=== PATIENT | male | born 1935 | race African-American/Black ===

== ENCOUNTER 2018-09-12 12:51 | Observation (INO) ==
[2018-09-12] MEDS ORDERED: ASPIRIN PR ONE (13:08)
[2018-09-12] MEDS ORDERED: ASPIRIN PO ONE (13:08)
--- NOTE | 2018-09-12 13:32 | Diag Imaging Result Doc PS360 ---
EXAM: CHEST-2 VIEWS HISTORY: CP/SOB TECHNIQUE: Chest two views COMPARISON: 05/26/2017 FINDINGS: The lungs are well expanded. The left hemidiaphragm is elevated similar to the prior study. The heart is not enlarged. The vessels are not distended. There are no infiltrates. No pleural effusions. IMPRESSION: No acute abnormality. Electronically signed by Bebo Jefferson 09/12/2018 1:30 PM
[2018-09-12 13:35] LABS: BASO# 0.02 X1000 (0.0-0.2); BASO% 0.3 % (0.0-0.8); EOS# 0.07 X1000 (0.0-0.7); EOS% 1.1 % (0.0-10.0); HEMATOCRIT 40.1 % (42.0-52.0); HEMOGLOBIN 12.7 g/dL (14.0-18.0); LYMPH# 1.74 X1000 (1.2-3.4); LYMPH% 28.2 % (20.5-51.1); MCH 29.5 PG (27-31); MCHC 31.7 g/dL (33-37); MCV 93.3 FL (81-99); MONO# 0.51 X1000 (0.11-0.59); MONO% 8.3 % (1.7-9.3); MPV 10.4 FL (7.4-10.4); NEUT# 3.83 X1000 (1.4-6.5); NEUT% 62.1 % (42.2-75.2); PLT 182 X1000 (130-400); RDW 12.2 % (11.5-14.5); WBC 6.17 X1000 (4.8-10.8)
[2018-09-12 13:38] LABS: INR 0.93; PROTIME 13.2 Seconds (11.0-16.0)
[2018-09-12 13:39] LABS: PTT 28.3 Seconds (22.3-41.8)
--- NOTE | 2018-09-12 13:48 | EKG Report ---
Test Performed on : 09/12/2018 1:10:58 PM Test Reason : CP/SOB Blood Pressure : / mmHG Vent. Rate : 084 BPM Atrial Rate : 084 BPM P-R Int : 206 ms QRS Dur : 088 ms QT Int : 378 ms P-R-T Axes : 050 051 -09 degrees QTc Int : 446 ms Sinus rhythm. with occasional premature ventricular complexes. Minimal voltage criteria for LVH, may be normal variant Nonspecific T wave abnormality Abnormal ECG When compared with ECG of 11-FEB-2010 11:32, premature ventricular complexes. are now present T wave inversion now evident in Inferior leads Nonspecific T wave abnormality now evident in Lateral leads Unconfirmed Result
[2018-09-12 13:52] LABS: AGAP 13; ALB/GLOB RATIO 1.4; ALBUMIN 4.2 g/dL (3.5-5.0); ALKALINE PHOSPHATASE 58 U/L (32-122); BUN 17 mg/dL (8-22); CALCIUM 9.4 mg/dL (8.8-10.2); CHLORIDE 103 mmol/L (98-107); CK PROFILE 187 U/L (24-204); COSMO 285; CREATININE 1.1 mg/dL (0.7-1.2); ESTIMATED GFR > 60; GLUCOSE 146 mg/dL (70-104); GOT 15 U/L (10-34); GPT 8 U/L (10-44); POTASSIUM 4.2 mmol/L (3.5-5.1); SODIUM 141 mmol/L (136-145); TCO2 25 mmol/L (25-35); TOTAL BILIRUBIN 0.58 mg/dL (0.20-1.00); TOTAL PROTEIN 7.3 g/dL (6.3-8.3)
--- NOTE | 2018-09-12 14:41 | ED EKG INTERP ---
This chart was entered by Peggy Garsia Scribe, acting as scribe for Brianda Alston MD. EKG Interpretation - EKG Time of EKG reading by physician:: 13:10 EKG Read and Signed by:: Brianda Alston EKG Interpretation (*Must complete 3 of following elements*): Abnormal ( nonspecific T wave abnormality.) Rate: 84 Rhythm: sinus rhythm with occasional premature ventricular complexes Comments: minimal voltage criteria for LVH, may be normal variant Attestation - Physician/ IVAN Attestation The physician spent face to face time with patient:: No Advanced Practice Provider documentation review:: Supervising physician onsite and consulted in the evaluation and care of this patient. The physician did not have a face to face encounter with the patient. This chart was documented by the indicated scribe, (Peggy Garsia Scribe) and accurately reflects the services I performed and decisions made by me, Brianda Alston MD, as attested by the provider's signature.
--- NOTE | 2018-09-12 16:10 | PROVIDER DOCUMENTATION ---
This chart was entered by Peggy Garsia Scribe, acting as scribe for Brianda Alston MD. HPI-Respiratory General - General Chief Complaint: Epigastric Pain Stated Complaint: CHEST PAIN / SOB Time Seen by Provider: 09/12/18 15:03 Source: patient Allergies/Adverse Reactions: Patient Allergies Allergy/AdvReac Type Severity Reaction Status Date / Time No Known Allergies Allergy Verified 09/12/18 15:59 - History of Present Illness-Resp Nature of Presenting Problem: Patient is a 82 year old male who presents to the ED with shortness of breath. Patient states shortness of breath started this morning. Patient states having a cardiac workup Wednesday by Dr. Jordan due to have chest pain prior. Patient denies having chest pain currently. Quality of Pain: reports: tightness Severity in ED: reports: mild Onset/Duration: reports: this morning Timing: reports: still present Cough Quality/Degree: reports: no cough Current Respiratory Medication Therapy: Initiated see nurses note Modifying Factors: improves with: nothing Associated Symptoms: reports: shortness of breath Similar Symptoms Previously?: No Recently seen or treated by another doctor?: Yes Review of Systems - Adult - REVIEW OF SYSTEMS - ADULT Constitutional: reports: no symptoms reported Eyes: reports: no symptoms reported Ears, Nose, Mouth & Throat: reports: no symptoms reported Cardiovascular: reports: no symptoms reported Respiratory: reports: shortness of breath. denies: cough, wheezing Gastrointestinal: reports: no symptoms reported Genitourinary: reports: no symptoms reported Musculoskeletal: reports: no symptoms reported Integumentary: reports: no symptoms reported Neurological: reports: no symptoms reported Psychiatric: reports: no symptoms reported Endocrine: reports: no symptoms reported Hematologic/Lymphatic: reports: no symptoms reported Allergic/Immunologic: reports: no symptoms reported All Other Systems: Reviewed and Negative Past History - Adult - PAST MEDICAL HISTORY-ADULT Review of Records: reports: Nursing Assessment Review, Medications Reviewed, Social history reviewed & non-contributory. Major Childhood Illnesses: reports: denies history Cardiovascular: reports: denies history Respiratory: reports: denies history Gastrointestinal: reports: denies history Obstetrical/Gynecological: reports: denies history Genitourinary: reports: denies history Musculoskeletal: reports: denies history Neurological: reports: denies history Endocrine/Immune: reports: denies history Other Conditions: reports: denies history - PRIOR SURGERIES/PROCEDURES Surgical/Procedure History: reports: reviewed, not pertinent - IMMUNIZATION STATUS Childhood Immunizations: See Nurse Assessment Flu Vaccine: See Nurse Assessment - FAMILY HISTORY Family History: reviewed, not pertinent - SOCIAL HISTORY Smoking: denies Substance Use: denies Physical Exam-General - PHYSICAL EXAM-ADULT Initial Vital Signs Reviewed: Yes - CONSTITUTIONAL General Appearance: alert, no apparent distress - HEAD, EARS, NOSE, MOUTH & THROAT HENMT: normal ENT inspection - NECK Neck: normal inspection - RESPIRATORY Respiratory: chest non-tender, lungs clear, normal breath sounds - CARDIOVASCULAR Cardiovascular: normal peripheral pulses, regular rate, rhythm - GASTROINTESTINAL (ABDOMEN) Abdominal Exam: normal bowel sounds, non tender, soft - MUSCULOSKELETAL Back Exam: normal inspection Extremity: non-tender, normal inspection - SKIN Integumentary: normal color, normal turgor, warm/dry - NEUROLOGIC Neurologic: grossly normal - PSYCHIATRIC Psych/Mental Status: normal mood/affect, oriented x 3 Progress - PLAN OF CARE/RESULTS Progress/Plan/Lab Results: Vital Signs - 8 hr 09/12/18 13:06 Temperature 98.3 F Pulse Rate 70 Respiratory Rate 18 Blood Pressure 151/66 O2 Sat by Pulse Oximetry 96 Laboratory Results - last 24 hr 09/12/18 09/12/18 09/12/18 13:12 13:12 13:12 WBC 6.17 RBC 4.30 L Hgb 12.7 L Hct 40.1 L MCV 93.3 MCH 29.5 MCHC 31.7 L RDW Std Deviation 12.2 Plt Count 182 MPV 10.4 Neut % (Auto) 62.1 Lymph % (Auto) 28.2 Eddy % (Auto) 8.3 Eos % (Auto) 1.1 Baso % (Auto) 0.3 Neut # (Auto) 3.83 Lymph # (Auto) 1.74 Eddy # (Auto) 0.51 Eos # (Auto) 0.07 Baso # (Auto) 0.02 PT INR PTT (Actin FS) Sodium 141 Potassium 4.2 Chloride 103 Carbon Dioxide 25 Anion Gap 13 BUN 17 Creatinine 1.1 Estimated GFR/1.73 m2 > 60 BUN/Creatinine Ratio 15 Glucose 146 H Calculated Osmolality 285 Calcium 9.4 Total Bilirubin 0.58 AST 15 ALT 8 L Alkaline Phosphatase 58 Creatine Kinase 187 Troponin T Nxc-V-Wrtchawfafw Pept 1287 H Total Protein 7.3 Albumin 4.2 Globulin 3.1 Albumin/Globulin Ratio 1.4 09/12/18 09/12/18 13:12 13:12 WBC RBC Hgb Hct MCV MCH MCHC RDW Std Deviation Plt Count MPV Neut % (Auto) Lymph % (Auto) Eddy % (Auto) Eos % (Auto) Baso % (Auto) Neut # (Auto) Lymph # (Auto) Eddy # (Auto) Eos # (Auto) Baso # (Auto) PT 13.2 INR 0.93 PTT (Actin FS) 28.3 Sodium Potassium Chloride Carbon Dioxide Anion Gap BUN Creatinine Estimated GFR/1.73 m2 BUN/Creatinine Ratio Glucose Calculated Osmolality Calcium Total Bilirubin AST ALT Alkaline Phosphatase Creatine Kinase Troponin T 0.110 H Igf-I-Ejfkikjodhy Pept Total Protein Albumin Globulin Albumin/Globulin Ratio Orders Category Date Time Status Cardiac Monitoring DIRECTED Care 09/12/18 13:08 Active Oxygen Therapy- ED Nursing DIRECTED Care 09/12/18 13:08 Active Saline Loc NOW Care 09/12/18 13:08 Active CHEST-2 VIEWS [RAD] Stat Exams 09/12/18 13:08 Completed CBC WITH ELECTRONIC DIFF [HEME] Stat Lab 09/12/18 13:12 Completed CK PROFILE [SP CHEM] Stat Lab 09/12/18 13:12 Completed COMPREHENSIVE METABOLIC PANEL [CHEM] Stat Lab 09/12/18 13:12 Completed PRO B-NATRIURETIC PEPTIDE Stat Lab 09/12/18 13:12 Completed PROTIME WITH INR [COAG] Stat Lab 09/12/18 13:12 Completed PTT [COAG] Stat Lab 09/12/18 13:12 Completed TROPONIN T Stat Lab 09/12/18 13:12 Completed Aspirin Med 09/12/18 13:08 Discontinued 325 mg PO NOW ONE CP/SOB/Palp >45 yrs of Age Stat Oth 09/12/18 13:08 Ordered EKG [EKG] Stat Ther 09/12/18 13:08 Draft Result Diagrams: 09/12/18 13:12 09/12/18 13:12 - XRAY 1 XRAY Study: Chest Impression: See EMR Report (EXAM: CHEST-2 VIEWS HISTORY: CP/SOB TECHNIQUE: Chest two views COMPARISON: 05/26/2017 FINDINGS: The lungs are well expanded. The left hemidiaphragm is elevated similar to the prior study. The heart is not enlarged. The vessels are not distended. There are no infiltrates. No pleural effusions. IMPRESSION: No acute abnormality. Electronically signed by Bebo Jefferson 09/12/2018 1:30 PM 09/12/18 1330 Interpreting Physician: Bebo Jefferson MD Dictated Date/Time: 09/12/18 1329 cc: Brianda Alston MD; Abhishek Jordan MD) - CONSULTS/PCP/HOSPITALIST Notification #1 *Consult/PCP/Hospitalist*: Dr. Jordan Time Discussed: 15:44 Reason/Comments: Dr. Alston consulted with Dr. Jordan about patient. #2 Consult: GOLDY Fregoso for Hospitalist Time Discussed: 15:59 (Dr. Prince accepted admit) Reason/Comments: Dr. Alston consulted with Ildefonso about patient. Consult Disposition: Admit Departure - Departure Date of Disposition Decision: 09/12/18 Time of Disposition Decision: 16:00 DIAGNOSIS: Angina pectoris, Elevated troponin Disposition: ADMITTED INPATIENT 09 Certified Medical Emergency: Emergent Condition: Stable Referrals and Follow-Ups: Abhishek Jordan MD [Primary Care Provider] - - Critical Care Note This patient required my direct & personal management of CC.: No Attestation - Physician/ IVAN Attestation The physician spent face to face time with patient:: Yes Advanced Practice Provider documentation review:: Supervising physician onsite and consulted in the evaluation and care of this patient. The physician did have a face to face encounter with the patient. This chart was documented by the indicated scribe, (Peggy Garsia Scribe) and accurately reflects the services I performed and decisions made by me, Brianda Alston MD, as attested by the provider's signature.
[2018-09-12] MEDS ORDERED: LOVENOX SUBQ SCH (16:15)
--- NOTE | 2018-09-12 16:57 | CARDIOLOGY CONSULTATION ---
DATE: 09/12/2018 Mr. Khanh Lima comes to the emergency room with discomfort in his chest which he describes as feeling anxious and palpitations like symptoms. I had seen him in the office a few weeks back where prior to his visit to the office he had retrosternal chest discomfort. This described his pain as severe in character and subsequently I had set him up for a Cardiolite stress test which he did on 09/09/2018. On the treadmill he had chest discomfort. Stress test revealed significant scar but there was no evidence of ischemia. With these palpitations which he presented today does not complain of any orthopnea. He does not complain of having chest pain per se during this hospitalization. However he says just some discomfort was noted. At the time of my examination patient was pain free. His electrocardiogram revealed normal sinus rhythm, nonspecific ST-T changes. PVC was noted. LABORATORY EXAMINATION: Revealed hemoglobin 12.7, hematocrit 40, platelet count of 182,000. Chemistry sodium 141, potassium 4.2, BUN 17, creatinine 1.1. ProBNP 1287. Creatine kinase was normal however troponin was abnormal at 0.11. The patient has known coronary artery disease. REVIEW OF SYSTEMS: 14 point review of systems was done. GI: There is no history of nausea, vomiting, diarrhea. There is no history of hematemesis or melena. Central nervous system: No focal weakness to suggest CVA, TIA. Genitourinary: There is no dysuria or hematuria. Respiratory: There is no history of cough, expectoration, hemoptysis. There is no history of fevers or chills. PAST MEDICAL HISTORY: Coronary artery disease, last cardiac catheterization 10/07/2007, left main had 10% ostial disease, left anterior descending artery mid 30%, circumflex minor irregularities, ostial had 30% stenosis, RCA, PDA 20% stenosis. History of hypertension, hyperlipidemia, history of TIA in 2017, prostate problems. HOME MEDICATIONS: Include aspirin, Cozaar 50, hydrochlorothiazide 25, simvastatin, potassium supplements, Hytrin. PHYSICAL EXAMINATION: Blood pressure was 150/66. Cardiovascular: Normal jugular venous pressure. There no thyromegaly. No carotid bruit. First and second heart sounds were heard. There was no S3 gallop. Respiratory: Normal air entry. There is no crepitations or rhonchi. Abdomen: Soft, nontender. There was no guarding or rigidity. Bowel sounds were heard. Central nervous system: Alert, oriented was moving all 4 extremities . Extremities: Revealed no pedal edema. HEENT: Atraumatic, normocephalic. Pupils were equal and reacting to light. ASSESSMENT AND PLAN: Mr. Khanh Lima is an 82-year-old gentleman who had minimal coronary artery disease by cardiac catheterization in 2007, has history of hypertension, TIA in the past, hyperlipidemia, who I saw in the office recently had chest discomfort prior to his visit to the hospital and at that time he had described his chest pain as significant and I set him up to undergo a Cardiolite stress test and he underwent the stress test on 09/09/2018 which at that time he had burning chest discomfort on the treadmill 05/16. Myocardial perfusion images do not reveal any evidence of ischemia. There was severe grade fixed defect in the inferior wall and inferoapical wall diagnostic of infarct or scar with ejection fraction of 60%. His echocardiogram revealed ejection fraction of 60%. RECOMMENDATIONS: 1. Given his ongoing symptoms and chest discomfort on the treadmill as well as symptoms today with an abnormal cardiac enzymes I have recommended that he be admitted and we will plan for a left heart catheterization in the morning. We will get serial cardiac enzymes. His CK-MB was normal, his CK and his troponin was abnormal, at the time of my examination patient was pain free. 2. We will continue with his aspirin. He is on Cozaar 50 mg a day. We will add beta blockers Toprol-XL 25 mg twice daily to his medical regimen in addition to Cozaar . 3. His chest x-ray was unremarkable. 4. Non-Q-wave myocardial infarction. Thank you for the consult. Will follow hospital course. cc: Abhishek Jordan MD
--- NOTE | 2018-09-12 17:33 | HISTORY AND PHYSICAL ---
HISTORY OF PRESENT ILLNESS: Mr. Lima is 82. He has been having some chest discomfort and some palpitations. I think he has seen Dr. Jordan recently this week. Had more palpitations yesterday and today with a little bit of nausea. Denied chest pain or pressure. Denies shortness of breath. No radiation or pain in the jaw or his left shoulder. PAST MEDICAL HISTORY: Pretty unremarkable. He has had an umbilical hernia repair about 12 years ago. Otherwise no surgeries. He has I think diabetes type 2 that is controlled on just oral medications. No history of smoking and no history of alcohol. I suspect he may have some benign prostatic hypertrophy as well; he is on Hytrin. ALLERGIES: No known drug allergies. FAMILY HISTORY: His mother was diabetic and father had hypertension. SOCIAL HISTORY: Negative for alcohol or tobacco. 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 REVIEW OF SYSTEMS: Constitutional: Did not describe any weight gain or loss. No fever or chills. HEENT: No change in vision or hearing acuity or trouble with neck pain. Respiratory: No increased work of breathing or dyspnea. Cardiovascular: He has had some atypical chest discomfort and palpitations. GI: No gross hematochezia. Gastrointestinal and Genitourinary: No hematuria or trouble with voiding. Endocrinologic/Hematologic: No significant history. Neurologic: No focal complaints. No change in his strength. PHYSICAL EXAMINATION: VITAL SIGNS: In the emergency room, temperature 98.3 degrees, pulse 70, respirations 18, blood pressure 151/66. HEENT: Pupils are equal and round. LUNGS: Clear in all lung mota. NECK: No distended neck veins. CVP less than 6 cm from angle of Glen. CARDIOVASCULAR: Regular rhythm and rate without murmur or S3. PMI nondisplaced. Carotid, radial, femoral, and popliteal and pedal pulses 2+ and symmetrical. ABDOMEN: Soft. I did not appreciate any abdominal or femoral bruits. SKIN: Warm and dry. EXTREMITIES: He has trace edema in his ankle to mid aguero. There are patches of hyperpigmentation consistent with chronic venous insufficiency. LABORATORY STUDIES: White count 6170, hematocrit 40, platelet count 182,000. Sodium 141, potassium 4.2, chloride 103, bicarb 25, BUN 17, creatinine 1.1. Troponin was 0.110. ProBNP was 1287. CK was 187. PT is 13.2, INR 0.93, PTT is 28. RADIOLOGIC STUDIES: Chest x-ray: No acute abnormality. Left hemidiaphragm is elevated, similar to prior study. The vessels were not distended. ASSESSMENT AND PLAN: Atypical chest discomfort and palpitations, concerned about atypical angina or coronary insufficiency. Dr. Jordan would like to perform a left heart catheterization tomorrow so we will admit, hold him NPO after midnight. We will check serial cardiac enzymes, both troponin and CPK. We will check T4, TSH, B12, folate in the morning and will follow up with another proBNP. Will also get a hemoglobin A1c and a lipid profile in the morning. Review of his home medicines, he is on aspirin 81 mg a day, hydrochlorothiazide 25 mg, Cozaar 50 mg a day, potassium chloride ER 10 mEq daily, Zocor 10 mg a day, terazosin which is Hytrin 10 mg daily. cc: Raphael Prince MD
[2018-09-12] MEDS ORDERED: TYLENOL PO PRN (19:32)
[2018-09-12] MEDS ORDERED: NITROGLYCERIN SL PRN (19:32)
[2018-09-12] MEDS ORDERED: ZOFRAN IV PRN (19:32)
[2018-09-12] MEDS ORDERED: ZOCOR PO SCH (21:00)
[2018-09-12] MEDS: HUMALOG SUBQ SCH (21:07)
[2018-09-12] MEDS: LOPRESSOR PO SCH (21:31)
[2018-09-13 05:40] LABS: HEMOGLOBIN A1C 5.8 % (4.8-6.0)
[2018-09-13 06:08] LABS: AGAP 11; ALB/GLOB RATIO 1.4; ALBUMIN 3.6 g/dL (3.5-5.0); ALKALINE PHOSPHATASE 49 U/L (32-122); BUN 15 mg/dL (8-22); CHLORIDE 103 mmol/L (98-107); COSMO 282; CREATININE 0.9 mg/dL (0.7-1.2); ESTIMATED GFR > 60; GLUCOSE 123 mg/dL (70-104); GOT 13 U/L (10-34); GPT 8 U/L (10-44); MAGNESIUM 1.9 mg/dL (1.5-2.7); POTASSIUM 3.8 mmol/L (3.5-5.1); SODIUM 140 mmol/L (136-145); TCO2 26 mmol/L (25-35); TOTAL BILIRUBIN 0.64 mg/dL (0.20-1.00); TOTAL PROTEIN 6.2 g/dL (6.3-8.3)
[2018-09-13] MEDS: HUMALOG SUBQ SCH ×4 (06:36→21:51)
[2018-09-13] MEDS: PRILOSEC PO SCH (06:39)
--- NOTE | 2018-09-13 07:07 | Diag Imaging Result Doc PS360 ---
EXAM: CHEST-PORTABLE 09/13/2018 HISTORY: Chest Pain TECHNIQUE: AP portable at 0614 COMMENT: The left hemidiaphragm is elevated. This was also the case on 09/12/2018. Considering differences in inspiration there has been no significant change. IMPRESSION: Stable chest. Electronically signed by Acosta Lamb 09/13/2018 7:04 AM
--- NOTE | 2018-09-13 07:23 | EKG Report ---
Test Performed on : 09/13/2018 07:04:19 AM Test Reason : follow up Blood Pressure : / mmHG Vent. Rate : 051 BPM Atrial Rate : 051 BPM P-R Int : 214 ms QRS Dur : 082 ms QT Int : 448 ms P-R-T Axes : 068 076 033 degrees QTc Int : 412 ms Sinus bradycardia. with 1st degree AV block. Minimal voltage criteria for LVH, may be normal variant Borderline ECG When compared with ECG of 12-SEP-2018 13:10, (Unconfirmed) premature ventricular complexes. are no longer present Vent. rate has decreased BY 33 BPM Confirmed by Rosalva BAINS, Jj Armstrong ([id number]) on 09/13/2018 6:15:30 PM
[2018-09-13] MEDS: DULCOLAX PO SCH (08:58)
[2018-09-13] MEDS: COZAAR PO SCH (08:58)
[2018-09-13] MEDS ORDERED: ASPIRIN PO SCH (09:00)
[2018-09-13 09:53] LABS: INR 1.03; PROTIME 14.3 Seconds (11.0-16.0)
[2018-09-13] MEDS ORDERED: HEPARIN 1000 UNITS/NS 2,000 UNIT/1,000 ML IV.SOLN ONE (10:01)
[2018-09-13] MEDS ORDERED: VERSED ONE (10:16)
[2018-09-13] MEDS ORDERED: DILAUDID ONE (10:16)
[2018-09-13] MEDS ORDERED: ANESTHESIA PB SET 88 IN 5742 ONE (10:17)
[2018-09-13] MEDS ORDERED: CLAVE TWINSITE 32 IN 11959 ONE (10:17)
[2018-09-13] MEDS ORDERED: NS 1,000 ML ONE (10:17)
[2018-09-13] MEDS ORDERED: HEPARIN 1000 UNITS/NS 1,000 UNIT/500 ML IV.SOLN ONE (11:48)
--- NOTE | 2018-09-13 12:15 | CARDIAC CATH REPORT ---
PROCEDURE NAME: - INDICATION FOR THE PROCEDURE: The patient has a history of recently abnormal nuclear stress. He had significant ST depression noted on his GXT as well as his symptoms of chest discomfort. He had a severe fixed defect in the inferior wall with a normal ejection fraction. In the hospitalization, he had a troponin elevation suggestive of [id number] SD. PROCEDURES PERFORMED: 1. Left heart catheterization. 2. Selective coronary angiography. 3. Left ventriculogram. PROCEDURE IN DETAIL: Mr. Lima was brought to the catheterization laboratory in fasting state. Informed consent was obtained. Prepped in usual fashion. He was anesthetized over the right radial artery after Raphael's test was proved negative. Five-Macanese catheter was placed via true Seldinger technique. Radial cocktail was administered. Catheters were introduced, and hemodynamic measurements made of the ascending and thoracic aorta. Coronary angiography was performed in multiple views using JL3.5 and JR4 diagnostic catheters. Unfortunately, we were unable to reach the right coronary from the radial approach. We then transitioned over to a right femoral approach. 5-Macanese sheath was placed via modified Seldinger technique. Catheters were introduced. Hemodynamic measurements were made. Coronary angiography of the right coronary was performed with the JR4. At conclusion of the procedure, TR band was left inflated on the right radial with good capillary refill, good hemostasis. 5-10 mL of blood loss. The right femoral sheath was sewn in place. Awaiting the results of an ACT. 150 mL of IV contrast, 5-10 mL of blood loss. FINDINGS: 1. The left main appears to be very short. Minimal disease is noted in the left main. 2. Left anterior descending originates from the left main. There is diffuse 20 % to 30% disease in the proximal vessel, diffuse 40% to 50% disease in the mid vessel with suggestion of a 60-70% lesion in the mid vessel. Minimal luminal irregularities in the distal vessel. 3. Circumflex originates from the left main. There is diffuse ostial and proximal disease of around 30% to 40% noted. The circumflex is a non-dominant vessel. The mid vessel and distal vessel appear relatively normal. It terminates as an OM branch, very small AV circumflex. 4. Right coronary originates from the right coronary cusp. The right coronary is an extremely large vessel there is a severe ostial lesion of 90% to 95% that is calcified. The midvessel has diffuse mild disease up to around 30% to 40%. The PDA has a proximal lesion of upwards of around 40% to 50%. 5. Left ventriculogram demonstrates an EF 60% to 65%. 6. Aortic blood pressure 145/61 with a mean of 97. Left ventricle pressure 142/ 1 with an LVEDP of 10. ASSESSMENT: Mr. Lima is an 82-year-old gentleman, who presented with symptoms concerning for [id number] myocardial infarction. He had previous stress testing. PLAN: He does appear to have a severe right coronary lesion and a potentially severe lesion in the mid LAD. I have discussed the case with the [facility] physicians. They are currently reviewing the films and determining whether they can potentially intervene on this lesions. We will follow up on his ACTs and pull the femoral sheath when appropriate. cc: Yandel Zepeda MD MTDD
[2018-09-13] MEDS: LOPRESSOR PO SCH ×2 (13:32→17:02)
--- NOTE | 2018-09-13 14:59 | PROGRESS NOTE ---
DATE: 09/13/2018 SUBJECTIVE: This morning, Mr. Lima refers to be doing a lot better. No more chest pain. Shortness of breath has improved. The patient also had a left heart catheterization this morning. OBJECTIVE: Vital Signs: Blood pressure is 125/51, pulse is 54, respirations 14 , temperature is 98.4. General: Mr. Lima is an 82-year-old -[place] gentleman. He is in bed. He is not in any distress. Mucosa is pink and moist. Anicteric. Acyanotic. Neck was supple. No JVD. No carotid bruit. Cardiovascular: Regular rate and rhythm. There are no murmurs. No rubs. No gallops. Respiratory System: Good air entry bilaterally. No crepitations. No rhonchi. GI: Abdomen was soft, nontender. Bowel sounds present. Extremities: No pedal edema. Distal pulses present. MICROSTRATEGY DEVELOPER: The patient was awake, alert, oriented. There is no focal neurological deficit. LABORATORY DATA: Lab data has been reviewed. Chemistry is completely unremarkable. DIAGNOSTIC STUDIES: A chest x-ray which was done this morning shows stable chest. No new changes. Troponins this morning was still a little elevated. EKG on admission did show normal sinus rhythm with some PVCs. The report of the left heart catheterization did show that the RCA is about 90% to 95% percent obstructed at the ostial level. All the other 2 major arterial circulation to the heart also have obstructions. ASSESSMENT: 1. Non-segment elevation myocardial infarction on presentation. 2. Coronary artery disease with pathological 3 vessels on left heart catheterization, more critical the ostial lesion in the RCA. I think [facility] has been contacted for patient to be transferred. Will be pending final arrangements by Cardiology. 3. Hypertension. The patient is on medications and is fairly stable. In general, I think Mr. Lima is fairly stable. He is 82 years old who got admitted because of non-STEMI. Left heart catheterization has revealed 3-vessel disease, more critical on the RCA and I think there is a plan for [facility] transfer. Will be waiting for further arrangements by Cardiology. cc: MD MAEVE Purvis
[2018-09-13] MEDS: RANEXA PO SCH (20:59)
[2018-09-13] MEDS ORDERED: ZOCOR PO SCH (21:00)
[2018-09-14 05:18] LABS: BASO# 0.01 X1000 (0.0-0.2); BASO% 0.2 % (0.0-0.8); EOS# 0.06 X1000 (0.0-0.7); EOS% 1.2 % (0.0-10.0); HEMATOCRIT 38.8 % (42.0-52.0); HEMOGLOBIN 12.2 g/dL (14.0-18.0); LYMPH% 23.2 % (20.5-51.1); MCHC 31.4 g/dL (33-37); MCV 92.2 FL (81-99); MONO# 0.35 X1000 (0.11-0.59); MONO% 6.8 % (1.7-9.3); MPV 10.4 FL (7.4-10.4); NEUT# 3.56 X1000 (1.4-6.5); NEUT% 68.6 % (42.2-75.2); PLT 174 X1000 (130-400); RBC 4.21 XMIL (4.7-6.1); RDW 11.8 % (11.5-14.5); WBC 5.18 X1000 (4.8-10.8)
[2018-09-14 05:32] LABS: AGAP 8; BUN 13 mg/dL (8-22); CALCIUM 9.4 mg/dL (8.8-10.2); CHLORIDE 100 mmol/L (98-107); COSMO 274; CREATININE 1.1 mg/dL (0.7-1.2); ESTIMATED GFR > 60; GLUCOSE 140 mg/dL (70-104); POTASSIUM 4.2 mmol/L (3.5-5.1); SODIUM 136 mmol/L (136-145); TCO2 28 mmol/L (25-35)
[2018-09-14] MEDS: PRILOSEC PO SCH (06:01)
[2018-09-14] MEDS: HUMALOG SUBQ SCH ×3 (06:01→16:30)
[2018-09-14] MEDS: RANEXA PO SCH (08:55)
[2018-09-14] MEDS: LOPRESSOR PO SCH (08:55)
[2018-09-14] MEDS: DULCOLAX PO SCH (08:55)
[2018-09-14] MEDS: COZAAR PO SCH (08:56)
[2018-09-14] MEDS ORDERED: ASPIRIN PO SCH (09:00)
--- NOTE | 2018-09-14 11:54 | PROGRESS NOTE ---
DATE: 09/14/2018 SUBJECTIVE: This morning, Mr. Lima refers to be doing a whole lot better. No more chest pain. According to him, he feels stronger, and he is about 4/5 if he is supposed to quantify this. No shortness of breath. OBJECTIVE: Vital Signs: Blood pressure is 167/65, pulse is 60, respirations are 16, temperature 97.8 degrees. General: Mr. Lima is an 82-year-old gentleman. He is in bed. No distress. HEENT: Mucosa is pink and moist. Anicteric. Acyanotic. Neck: Supple. There is no JVD. No carotid bruit. Respiratory: Good air entry bilaterally. No crepitations. No rhonchi. Cardiovascular: Regular rate and rhythm. No murmurs, no rubs, no gallops. GI: Abdomen is soft, nontender. Bowel sounds present. Extremities: No pedal edema. Distal pulses present. AEROSPACE ENGINEER: The patient is awake, alert, and oriented. There is no focal neurological deficit. LABORATORY DATA: Reviewed. WBC is 5.18, hemoglobin is 12.2, platelet count 174,000. Chemistry is also reviewed and completely unremarkable. CURRENT MEDICATIONS: Include: 1. Aspirin 81 mg daily. 2. Dulcolax 5 mg daily. 3. Sliding scale insulin. 4. Cozaar 50 mg daily. 5. Lopressor 25 mg daily. 6. Omeprazole 20 mg daily. 7. Ranexa 500 p.o. b.i.d. 8. Zocor 40 mg at bedtime. ASSESSMENT: 1. Non ST-elevation myocardial infarction on presentation. 2. Severe three-vessel coronary artery disease with critical right coronary artery stenosis of about 90%. 3. Hypertension. In general, I think Mr. Lima is doing fairly okay. We are still pending bed availability in [place] to get him transferred. The patient is being seen by Cardiology as well. cc: Jorge L Gomez MD
[2018-09-14 15:57] VITALS: BP 131/60
--- NOTE | 2018-09-15 05:57 | DISCHARGE SUMMARY ---
ADMISSION DATE: 09/12/2018 DISCHARGE DATE: 09/14/2018 DISPOSITION: [facility]. CONSULTATION DURING THIS ADMISSION: Cardiology was consulted, the patient was seen by Dr. Zepeda. INVASIVE PROCEDURES DONE DURING THIS ADMISSION: A left heart catheterization was done which did show triple-vessel disease with critical severe ostial lesion of 90%-95% in the right coronary artery. ADMISSION DIAGNOSIS: Atypical chest pain. DIAGNOSES AT THE TIME OF DISCHARGE: 1. Non-ST segment elevation myocardial infarction. 2. Severe 3-vessel coronary artery disease with critical right coronary artery stenosis (90%-95% stenosis). 3. Hypertension. PRESENTING COMPLAINT: Chest pain. HISTORY OF PRESENT COMPLAINT: Mr. Lima is an 82-year-old gentleman with a past medical history of hypertension and dyslipidemia. The patient also follows up with Dr. Jordan. He came to the emergency department because of some chest discomfort and nausea. The patient was evaluated and in the workup he was found to have elevated troponin and some T-wave abnormality in the inferior leads. The patient was admitted for non-STEMI. HOSPITAL COURSE: During the hospital course Mr. Lima was seen by Dr. Zepeda, the Dance Director, and a decision for left heart catheterization was made. The left heart catheterization report is in the chart, but briefly it revealed a triple-vessel disease with critical RCA ostial lesion which was about 90%-95%, and we thought that was the cause for Mr. Lima's presentation. Arrangement was made with [place] for Mr. Lima to be transferred over there for intervention evaluation. At the time of the transfer, Mr. Lima was stable. His blood pressure is 131/60, pulse of 58, respirations 16, temperature is 98.6 degrees. All the discharge instructions were discussed with him in detail, and I did let him know that more detailed information will be discussed with him in [place] once the director operating room review all the imaging. Time spent for discharge is 35 minutes. cc: Jorge L Gomez MD
== END 2018-09-14 18:50 | disposition short-term general hospital (02) ==
LOC: 3N 12:51 → ED 12:51 → SUATTDRO 16:56 → EDIPHOLD 17:08 → 3S 19:04
PROVIDERS: ATTEND Internal Medicine
CPT/HCPCS: 71010; 71020; 71045; 71046; 80048; 80053; 80061; 82550; 82607; 82746; 82948; 83036; 83721; 83735; 83880; 84443; 84484; 85025; 85347; 85610; 85730; 93005; 93010; 93458; 94761; 96372; 99285; A9270; J1170; J1644; J1650; J2250; J7030; Q9967; XXXXX